=== PATIENT | male | born 1980 | race Caucasian/White ===

== ENCOUNTER 2021-07-02 20:54 | Emergency (ER) | payer SELFPAY ==
[2021-07-02] MEDS: Glucagon,Human Recombinant 1 MG Vial IVPUSH ONE ×2 (21:10→21:20)
[2021-07-02] MEDS: Sodium Chloride 0.9% 1,000 ML IV ONE ×2 (21:11→21:20)
--- NOTE | 2021-07-02 21:21 | EDM.PDOC ---
ED HPI GENERAL MEDICAL PROBLEM - General Chief Complaint: ENT Problem Stated Complaint: CHOKING Time Seen by Provider: 07/02/21 21:16 Source of Information: Reports: Patient History Limitations: Reports: No Limitations - History of Present Illness INITIAL COMMENTS - FREE TEXT/NARRATIVE: HISTORY AND PHYSICAL: History of present illness: Patient is a 41-year-old male who presents to the emergency room with concerns of a food bolus. Patient states he was eating a pork chop when he felt a piece of meat get stuck in his esophagus. Upon arrival he is vomiting, spitting out saliva and difficulty swallowing. He does have full speech and is breathing appropriately although appears uncomfortable. During the triage process the nurse was able to give him some Coca-Cola with some aggressive jumping movements, patient was able to successfully swallow the piece of meat. Immediately patient was feeling relief and able to speak in full sentences. He is able to swallow his saliva and no longer has the sensation of needing to vomit. Patient reports this is never happened previous, no history of stricture/EGD. Patient denies any fever, chills, headache, change in vision, syncope or near syncope. Denies any chest pain, back pain, abdominal pain, diarrhea, constipation or dysuria. Has not noted any blood in urine or stool. Patient had previously been eating and drinking appropriately. Review of systems: As per history of present illness and below otherwise all systems reviewed and negative. Past medical history: As per history of present illness and as reviewed below otherwise noncontributory. Surgical history: As per history of present illness and as reviewed below otherwise noncontributory. Social history: See social history for further information Family history: As per history of present illness and as reviewed below otherwise noncontributory. Physical exam: General: Well developed and well nourished 41 year old male. Alert and orientated x 3. Nontoxic in appearance and in no acute distress. Vital signs are stable and have been reviewed by me. Nursing notes were reviewed. HEENT: Atraumatic, normocephalic, pupils equal and reactive bilaterally, negative for conjunctival pallor or scleral icterus, mucous membranes moist, TMs normal bilaterally, throat clear, neck supple, nontender, trachea midline. No drooling or trismus noted. No meningeal signs. No hot potato voice noted. Lungs: Clear to auscultation bilaterally. No wheezes, rales, or rhonchi. Chest nontender. Normal work of breathing, no accessory muscles used. Heart: S1S2, regular rate and rhythm without overt murmur, gallops, or rubs. No JVD. No peripheral edema Abdomen: Soft, nondistended, nontender. Normoactive bowel sounds. Negative for masses or costovertebral tenderness. Skin: Intact, warm, dry. No lesions or rashes noted. Hematologic: No petechiae or purpra. Mucosa appropriate color and normal nail bed color and refill. Extremities: Atraumatic, moves all extremities per self without difficulty or deficits, negative for cords or calf pain. Neurovascular unremarkable. Neuro: Awake, alert, oriented. Cranial nerves II through XII unremarkable. Cerebellum unremarkable. Motor and sensory unremarkable throughout. Exam nonfocal. Psychiatric: Mood and affect are appropriate. Normal thought process. Answering questions appropriately. Please note that the patient was seen and evaluated during the 2019 SARS-CoV-2 novel coronavirus pandemic period. Community viral transmission is ongoing at time of this encounter and the emergency department is operating under pandemic response procedures. Medical Decision Making: Upon arrival he is vomiting, spitting out saliva and difficulty swallowing. He does have full speech and is breathing appropriately although appears uncomfortable. During the triage process the nurse was able to give him some Coca-Cola with some aggressive jumping movements, patient was able to successfully swallow the piece of meat. Immediately patient was feeling relief and able to speak in full sentences. He is able to swallow his saliva and no longer has the sensation of needing to vomit. Patient reports this is never happened previous. Patient's vital signs are stable. Lung sounds are clear. We will continue to monitor the patient to make sure he is safe prior to discharge. I have talked with the patient about today's findings, in addition to providing specific details for plan of care. Reassessment at the time of disposition demonstrates that the patient is in no acute distress. The patient is stable for discharge, counseling was provided and we discussed in great detail signs and symptoms that would prompt them to return to the Emergency Department. Medication, follow up and supportive care measures were reviewed and discussed. Voices understanding and is agreeable to plan of care. Denies any further questions or concerns at this time. Diagnostics: CXR Therapeutics: Glucagon (cancelled) Impression: Food bolus Plan: 1. Today you were seen on an emergent basis. Chest x-ray shows no concern for aspiration pneumonia. Continue to monitor your symptoms closely as you may need to follow-up with your primary care provider for reevaluation if you do develop any respiratory symptoms. Make sure you take smaller bites of food and chew thoroughly. You may want to do a soft food diet over the next few days as your throat may be sore. 2. If any symptoms should arise or new symptoms develop please return to the emergency room. Definitive disposition and diagnosis as appropriate pending reevaluation and review of above. - Related Data Allergies Allergy/AdvReac Type Severity Reaction Status Date / Time No Known Allergies Allergy Verified 07/02/21 21:11 Home Meds: Home Meds . [No Known Home Meds] 07/02/21 [History] ED ROS ENT - Review of Systems Review Of Systems: Comprehensive ROS is negative, except as noted in HPI. ED EXAM, ENT - Physical Exam Exam: See Below (See dictation) Course - Vital Signs Last Recorded V/S: Last Vital Signs Temp 97.5 F 07/02/21 21:13 Pulse 94 07/02/21 21:13 Resp 18 07/02/21 21:13 BP 157/107 H 07/02/21 21:13 Pulse Ox 97 07/02/21 21:13 - Orders/Labs/Meds Orders: Active Orders 24 hr Category Date Time Status Chest 1V Frontal [CR] Stat Exams 07/02/21 21:20 Taken Sodium Chloride 0.9% [Normal Saline] 1,000 ml Med 07/02/21 21:04 Active IV STAT Medication Orders Sodium Chloride (Normal Saline) 1,000 mls @ 999 mls/hr IV STAT ONE Stop: 07/02/21 22:04 Last Admin: 07/02/21 21:20 Dose: Not Given Documented by: [email or web address] Meds: Medications Generic Name Dose Route Start Last Admin Trade Name Freq PRN Reason Stop Dose Admin Sodium Chloride 1,000 mls @ 999 mls/hr 07/02/21 21:04 07/02/21 21:20 Normal Saline IV 07/02/21 22:04 Not Given STAT ONE Discontinued Medications Generic Name Dose Route Start Last Admin Trade Name Freq PRN Reason Stop Dose Admin Glucagon 1 mg 07/02/21 21:04 07/02/21 21:20 Glucagon,Human Recombinant 1 Mg Vial IVPUSH 07/02/21 21:05 Not Given ONETIME ONE Departure - Departure Time of Disposition: 21:45 Disposition: Home, Self-Care 01 Clinical Impression: Esophageal foreign body Qualifiers: Encounter type: initial encounter Qualified Code(s): T18.108A - Unspecified foreign body in esophagus causing other injury, initial encounter - Discharge Information Instructions: Choking, Adult Referrals: PCP,None [Primary Care Provider] - Forms: ED Department Discharge Additional Instructions: The following information is given to patients seen in the emergency department who are being discharged to home. This information is to outline your options for follow-up care. We provide all patients seen in our emergency department with a follow-up referral. The need for follow-up, as well as the timing and circumstances, are variable depending upon the specifics of your emergency department visit. If you don't have a primary care physician on staff, we will provide you with a referral. We always advise you to contact your personal physician following an emergency department visit to inform them of the circumstance of the visit and for follow-up with them and/or the need for any referrals to a consulting specialist. The emergency department will also refer you to a specialist when appropriate. This referral assures that you have the opportunity for follow-up care with a specialist. All of these measure are taken in an effort to provide you with optimal care, which includes your follow-up. Under all circumstances we always encourage you to contact your private physician who remains a resource for coordinating your care. When calling for follow-up care, please make the office aware that this follow-up is from your recent emergency room visit. If for any reason you are refused follow-up, please contact the [facility] Emergency Department at and asked to speak to the emergency department charge nurse. [facility] [address] [place] [id number] [facility] [address] [place] [id number] Thank you for choosing the [facility] emergency department in [place] for your medical needs today. It was a pleasure caring for you. Today you were seen in the emergency department for food bolus. 1. Today you were seen on an emergent basis. Chest x-ray shows no concern for aspiration pneumonia. Continue to monitor your symptoms closely as you may need to follow-up with your primary care provider for reevaluation if you do develop any respiratory symptoms. Make sure you take smaller bites of food and chew thoroughly. You may want to do a soft food diet over the next few days as your throat may be sore. 2. If any symptoms should arise or new symptoms develop please return to the emergency room. Sepsis Event Note (ED) - Focused Exam Vital Signs: Vital Signs Temp Pulse Resp BP Pulse Ox 07/02/21 21:13 97.5 F 94 18 157/107 H 97 - My Orders Last 24 Hours: My Active Orders 07/02/21 21:04 Sodium Chloride 0.9% [Normal Saline] 1,000 ml IV STAT 07/02/21 21:20 Chest 1V Frontal [CR] Stat - Assessment/Plan Last 24 Hours: My Active Orders 07/02/21 21:04 Sodium Chloride 0.9% [Normal Saline] 1,000 ml IV STAT 07/02/21 21:20 Chest 1V Frontal [CR] Stat
--- NOTE | 2021-07-02 22:07 | CR ---
INDICATION: Chest pain, shortness of breath TECHNIQUE: Chest radiograph 1 view COMPARISON: None FINDINGS: Mediastinum: The mediastinum is normal in appearance. The heart silhouette is normal in size and morphology. Lung: Both lungs are unremarkable in appearance. No sign of pleural effusion seen. No pneumothorax is identified. Bone and Soft tissue: Unremarkable for age. IMPRESSION: 1. No acute cardiopulmonary disease is seen. Dictated by: Randell Melgar MD @ 07/02/2021 22:05:00 (Electronically Signed)
== END 2021-07-02 21:56 | disposition home or self-care (01) ==
LOC: MW.ED 20:54
DX: T18.128A Food in esophagus causing other injury, initial encounter (principal)
CPT/HCPCS: 71045; 71045-26; 99283-25; J1610; J7030